=== PATIENT | female | born 1950 | race Hispanic/Latino ===

== ENCOUNTER 2017-11-04 20:03 | Inpatient (IN) | payer MEDICARE, OTHER ==
--- NOTE | 2017-11-04 20:47 | ED PDOC ---
Arrival/HPI - General Chief Complaint: GI Problem Time Seen by Provider: 11/04/17 20:43 Historian: Patient - History of Present Illness Narrative History of Present Illness (Text): 11/04/17 20:40 67 year old female, whose PMH includes hypertension, borderline diabetes, and coronary stents, who presents to the emergency department complaining of vomiting since earlier today. Patient reports last night she had diarrhea, and today began to feel nauseous associated with fever and chills. Patient reports she had about 6 episodes of diarrhea and denies any sick contact at home. Her children states she was not acting liker herself or answering questions. Patient denies abdominal pain, chest pain, shortness of breath, headache, dysuria, hematochezia, or other complaints. PMD: Dr. White Time/Duration: 4-6 hours Symptom Onset: Sudden Symptom Course: Worsening Past Medical History - Provider Review Nursing Documentation Reviewed: Yes - Infectious Disease Hx of Infectious Diseases: None - Tetanus Immunization Tetanus Immunization: Unknown - Cardiac Hx Cardiac Disorders: Yes Hx Hypertension: Yes - Pulmonary Hx Respiratory Disorders: Yes Hx Sleep Apnea: Yes - Neurological Hx Neurological Disorder: Yes Hx Migraine: Yes Other/Comment: Migraine headache - HEENT Hx HEENT Disorder: No (WEARS RX GLASSES) - Renal Hx Renal Disorder: No - Endocrine/Metabolic Hx Endocrine Disorders: Yes Other/Comment: UNCONTROLLED BS - Hematological/Oncological Hx Blood Disorders: Yes Hx Anemia: Yes - Integumentary Hx Dermatological Disorder: Yes Hx Psoriasis: Yes - Musculoskeletal/Rheumatological Hx Musculoskeletal Disorders: Yes Hx Arthritis: Yes Hx Falls: No Hx Osteoarthritis: Yes Hx Unsteady Gait: Yes - Gastrointestinal Hx Gastrointestinal Disorders: Yes Hx Gastroesophageal Reflux: Yes - Genitourinary/Gynecological Hx Genitourinary Disorders: No - Psychiatric Hx Emotional Abuse: No Hx Physical Abuse: No Hx Substance Use: No - Surgical History Hx Cardiac Catheterization: Yes Hx Coronary Stent: Yes Hx Orthopedic Surgery: Yes (R KNEE) - Anesthesia Hx Anesthesia: Yes Hx Anesthesia Reactions: Yes (NAUSEA/VOMITING) Hx Malignant Hyperthermia: No - Suicidal Assessment Feels Threatened In Home Enviroment: No Family/Social History - Physician Review Nursing Documentation Reviewed: Yes Family/Social History: Unknown Family HX Smoking Status: Never Smoked Hx Alcohol Use: No Hx Substance Use: No Hx Substance Use Treatment: No Allergies/Home Meds Allergies/Adverse Reactions: Allergies Penicillins Allergy (Verified 11/04/17 20:04) RASH Home Medications: Home Meds Medication Instructions Recorded Confirmed Amlodipine Besylate [Norvasc] 5 mg PO QAM 11/03/15 11/04/17 Ascorbic Acid [Vitamin C] 1 tab PO DAILY 11/03/15 11/04/17 Cholecalciferol [Vitamin D] 1,000 iu PO QAM 11/03/15 11/04/17 Esomeprazole Magnesium [Nexium] 40 mg PO QAM 11/03/15 11/04/17 Glucosamine/D3/Boswellia Sofie 1 each PO QAM 11/03/15 11/04/17 [Glucosamine Complex Tablet] Collbran-3 Fatty Acids [Fish Oil] 1 tab PO DAILY 11/03/15 11/04/17 Propranolol HCl [Inderal LA] 160 mg PO QAM 11/03/15 11/04/17 Vitamin E 1 tab PO DAILY 11/03/15 11/04/17 Atorvastatin [Lipitor] 20 mg PO DAILY 11/27/15 11/04/17 Review of Systems - Review of Systems Constitutional: Fevers ENT: absent: Sinus Congestion Respiratory: absent: SOB Cardiovascular: absent: Chest Pain Gastrointestinal: Diarrhea, Nausea, Vomiting. absent: Abdominal Pain Genitourinary Female: absent: Dysuria Skin: absent: Rash Neurological: absent: Headache Endocrine: absent: Diaphoresis Physical Exam Vital Signs Reviewed: Yes Vital Signs Temp Pulse Resp BP Pulse Ox 11/04/17 20:10 100.5 F H 101 H 17 121/81 100 Temperature: Febrile Blood Pressure: Normal Pulse: Tachycardic Respiratory Rate: Normal Appearance: Positive for: Non-Toxic, Comfortable Pain Distress: None Mental Status: Positive for: Alert and Oriented X 3 - Systems Exam Head: Present: Atraumatic, Normocephalic Pupils: Present: PERRL Extroacular Muscles: Present: EOMI Conjunctiva: Present: Normal Mouth: Present: Dry. No: Moist Mucous Membranes Respiratory/Chest: Present: Clear to Auscultation, Good Air Exchange. No: Respiratory Distress, Accessory Muscle Use, Wheezes, Decreased Breath Sounds, Rales, Retracting, Rhonchi Cardiovascular: Present: Regular Rate and Rhythm, Normal S1, S2. No: Murmurs Abdomen: Present: Normal Bowel Sounds. No: Tenderness, Distention, Peritoneal Signs, Rebound, Guarding Neurological: Present: GCS=15, CN II-XII Intact, Speech Normal Skin: Present: Warm, Dry, Pale. No: Rashes, Normal Color Psychiatric: Present: Alert, Oriented x 3, Normal Insight, Normal Concentration Medical Decision Making ED Course and Treatment: 11/04/17 Impression: 67 year old female with dry mucous membrane and pale appearance complaining of nausea, vomiting, diarrhea , and fever. Plan: -- CT abdomen -- Labs -- Zofran and Sodium Chloride -- Urinalysis -- Reassess and disposition Progress Notes: EXAM: CT Abdomen and Pelvis With Intravenous Contrast Dictated and Authenticated by: Thien Baker MD 11/05/2017 12:02 AM IMPRESSION: 1. Diverticulosis in the colon without evidence of diverticulitis. 2. There is some fluid in the colon which could represent diarrhea. No significant mucosal thickening to suggest colitis. 11/05/17 00:[address] Reid, patient to be admitted for acute vomit and diarrhea, febrile with presumed infectious source, empiric iv abx, hypomagnesium - Lab Interpretations Lab Results: 11/04/17 20:30 11/04/17 20:30 Lab Results 11/04/17 23:00: Lactic Acid 2.5 H 11/04/17 20:30: pO2 47, VBG pH 7.40, VBG pCO2 43.0, VBG HCO3 26.6, VBG O2 Sat ( Calc) 86.5 H, VBG Base Excess 1.5 11/04/17 20:30: Sodium 139, Potassium 3.5 L, Chloride 100, Carbon Dioxide 26, Anion Gap 17, BUN 15, Creatinine 0.6 L, Est GFR ( Amer) > 60, Est GFR ( Non-Af Amer) > 60, Random Glucose 126 H, Calcium 8.7, Magnesium 1.0 L*, Total Bilirubin 0.9, AST 31, ALT 39, Alkaline Phosphatase 63, Total Protein 7.4, Albumin 4.6, Globulin 2.9, Albumin/Globulin Ratio 1.6 11/04/17 20:30: WBC 7.3 D, RBC 4.69, Hgb 13.9, Hct 40.2, MCV 85.7, MCH 29.6, MCHC 34.6, RDW 13.5, Plt Count 155, MPV 10.4, Gran % 86.9 H, Lymph % (Auto) 6.7 L, [place] % (Auto) 4.8, Eos % (Auto) 1.5, Baso % (Auto) 0.1, Gran # 6.32, Lymph # (Auto) 0.5 L, [place] # (Auto) 0.4, Eos # (Auto) 0.1, Baso # (Auto) 0.01 I have reviewed the lab results: Yes - RAD Interpretation Radiology Orders: 11/04/17 20:44 ABDOMEN & PELVIS [ABD & PELVIS IV CONTRAST ONLY] [CT] Stat Obstetrics Nurse: Radiologist - EKG Interpretation EKG Interpretation (Text): 11/05/17 00:38 2320: nsr at 90 bpm, nml qrs, nml axis, nonspecific t wave abnormality, lateral flipped t waves Interpreted by ED Physician: Yes - Medication Orders Current Medication Orders: Sodium Chloride (Sodium Chloride 0.9%) 1,000 mls @ 150 mls/hr IV .Q6H40M HECTOR Last Admin: 11/04/17 21:05 Dose: 150 mls/hr eMAR Start Stop Document 11/04/17 21:05 JOMalia (Rec: 11/04/17 21:05 MYA [id number]) Intravenous Solution Start Date 11/04/17 Start Time 21:05 Ciprofloxacin (Cipro 400mg/200ml Dsw) 400 mg in 200 mls @ 133.3 mls/hr IVPB STAT STA PRN Reason: Protocol Stop: 11/05/17 01:45 Metronidazole (Flagyl) 500 mg in 100 mls @ 100 mls/hr IVPB STAT STA PRN Reason: Protocol Stop: 11/05/17 01:15 Last Admin: 11/05/17 00:31 Dose: 100 mls/hr eMAR Start Stop Document 11/05/17 00:31 JOL (Rec: 11/05/17 00:31 MYA [id number]) Intravenous Solution Start Date 11/05/17 Start Time 00:31 End Date 11/05/17 End time 01:31 Total Infusion Time 60 Ondansetron HCl (Zofran Inj) 4 mg IVP Q6 PRN PRN Reason: Nausea/Vomiting Discontinued Medications Magnesium 2 gm/50 ml NS (Magnesium Sulfate 2 Gm/50 Ml Ns) 2 gm in 50 mls @ 50 mls/hr IVPB ONCE ONE Stop: 11/04/17 22:50 Last Admin: 11/04/17 22:35 Dose: 50 mls/hr eMAR Start Stop Document 11/04/17 22:35 MYA (Rec: 11/04/17 22:48 JOMalia [id number]) Intravenous Solution Start Date 11/04/17 Start Time 22:35 End Date 11/04/17 End time 23:35 Total Infusion Time 60 Ondansetron HCl (Zofran Inj) 4 mg IVP STAT STA Stop: 11/04/17 20:45 Last Admin: 11/04/17 21:05 Dose: 4 mg IVP Administration Document 11/04/17 21:05 MYA (Rec: 11/04/17 21:05 MYA [id number]) Charges for Administration # of IVP Administrations 1 - Scribe Statement The provider has reviewed the documentation as recorded by the Scribe So Gutierrez Provider Scribe Attestation: All medical record entries made by the Scribe were at my direction and personally dictated by me. I have reviewed the chart and agree that the record accurately reflects my personal performance of the history, physical exam, medical decision making, and the department course for this patient. I have also personally directed, reviewed, and agree with the discharge instructions and disposition. Disposition/Present on Arrival - Present on Arrival Any Indicators Present on Arrival: No History of DVT/PE: No History of Uncontrolled Diabetes: No Urinary Catheter: No History of Decub. Ulcer: No History Surgical Site Infection Following: None - Disposition Have Diagnosis and Disposition been Completed?: Yes Diagnosis: Gastroenteritis, Hypomagnesemia Disposition: HOSPITALIZED Disposition Time: 00:18 Patient Problems: Current Active Problems Problem Status Onset Gastroenteritis Acute Hypomagnesemia Acute Condition: FAIR
[2017-11-04] MEDS: Sodium Chloride 0.9% 1,000 ML IV SCH (21:05)
[2017-11-04 21:15] LABS: BASO # 0.01 K/mm3 (0.0-2.0); BASO % 0.1 % (0.0-3.0); EOS # 0.1 (0.0-0.7); EOS % 1.5 % (1.5-5.0); GRAN # 6.32 (1.4-6.5); GRAN % 86.9 % (50.0-68.0); HEMOGLOBIN 13.9 g/dL (12.0-16.0); LYMPH # 0.5 (1.2-3.4); LYMPH % 6.7 % (22.0-35.0); MEAN CELL VOLUME 85.7 fl (80.0-105.0); MEAN CORPUSCULAR HEMOGLOBIN 29.6 pg (25.0-35.0); MEAN CORPUSCULAR HGB CONC 34.6 g/dl (31.0-37.0); MEAN PLATELET VOLUME 10.4 fl (7.0-11.0); MONO # 0.4 (0.1-0.6); MONO % 4.8 % (1.0-6.0); RBC 4.69 10^6/uL (3.5-6.1); RED CELL DISTRIBUTION WIDTH 13.5 % (11.5-14.5); WHITE BLOOD COUNT 7.3 10^3/ul (4.5-11.0)
[2017-11-04 21:16] LABS: VENOUS BLOOD GAS BASE EXCESS 1.5 mmol/L (0.0-2.0); VENOUS BLOOD GAS PO2 47 mm/Hg (30-55)
[2017-11-04 21:47] LABS: ALB/GLOB RATIO 1.6 (1.1-1.8); ALBUMIN 4.6 g/dL (3.0-4.8); ALT/SGPT 39 U/L (7-56); AST/SGOT 31 U/L (14-36); BLOOD UREA NITROGEN 15 mg/dL (7-21); CALCIUM 8.7 mg/dL (8.4-10.5); GFR AFRICAN-AMERICAN > 60; GFR NON-AFRICAN AMERICAN > 60
[2017-11-04] MEDS ORDERED: Magnesium 2 gm/50 ml NS 2 GM/50 ML BAG IVPB ONE (21:51)
[2017-11-04] MEDS ORDERED: Iohexol 350 MG/100 ML VIAL ONE (22:03)
[2017-11-05] MEDS ORDERED: Ciprofloxacin 400mg/200ml D5W 400 MG/200 ML BAG IVPB STA (00:15)
[2017-11-05] MEDS ORDERED: metroNIDAZOLE IV 500 mg/100 ml 500 MG/100 ML BAG IVPB STA (00:16)
[2017-11-05 01:52] LABS: PH,URINE 6.5 (4.7-8.0); URINE APPEARANCE CLEAR (CLEAR); URINE BILIRUBIN NEGATIVE (NEGATIVE); URINE BLOOD NEGATIVE (NEGATIVE); URINE COLOR YELLOW (YELLOW); URINE GLUCOSE (UA) NEGATIVE (NEGATIVE); URINE LEUKOCYTE ESTERASE NEGATIVE Leu/uL (NEGATIVE); URINE PROTEIN NEGATIVE mg/dL (<30 mg/dL); URINE UROBILINOGEN 0.2 E.U./dL (<1 E.U./dL)
[2017-11-05] MEDS: Sodium Chloride 0.9% 1,000 ML IV SCH ×5 (01:52→23:00)
[2017-11-05 03:02] VITALS: BMI 35.0
[2017-11-05] MEDS ORDERED: Pneumococcal 23-Valent Vaccine IM ONE (03:02)
--- NOTE | 2017-11-05 09:20 | CARD ---
APPROVED REPORT Date of service: 11/04/2017 EKG Measurement Heart [id number] CT [id number] <Conclusion> Normal sinus rhythm Minimal voltage criteria for LVH, may be normal variant Cannot rule out Anterior infarct, age undetermined T wave abnormality, consider lateral ischemia Abnormal ECG
[2017-11-05 10:14] LABS: MEAN CELL VOLUME 87.1 fl (80.0-105.0); MEAN CORPUSCULAR HEMOGLOBIN 29.8 pg (25.0-35.0); MEAN CORPUSCULAR HGB CONC 34.2 g/dl (31.0-37.0); MEAN PLATELET VOLUME 9.5 fl (7.0-11.0); RBC 4.03 10^6/uL (3.5-6.1); RED CELL DISTRIBUTION WIDTH 13.6 % (11.5-14.5); WHITE BLOOD COUNT 4.6 10^3/ul (4.5-11.0)
--- NOTE | 2017-11-05 10:22 | CT ---
Date of service: 11/04/2017 PROCEDURE: CT Abdomen and Pelvis without intravenous contrast HISTORY: colitis COMPARISON: None. TECHNIQUE: Technique. Contrast dose: Radiation dose: Total exam DLP = mGy-cm. This CT exam was performed using one or more of the following dose reduction techniques: Automated exposure control, adjustment of the mA and/or kV according to patient size, and/or use of iterative reconstruction technique. FINDINGS: LOWER THORAX: Elevated left hemidiaphragm. LIVER: 1.2 centimeter hypodense lesion in the right hepatic lobe probably a cyst or hemangioma. . No gross lesion or ductal dilatation. GALLBLADDER AND BILE DUCTS: Unremarkable. PANCREAS: Unremarkable. No gross lesion or ductal dilatation. SPLEEN: Unremarkable. ADRENALS: Unremarkable. No mass. KIDNEYS AND URETERS: Unremarkable. No hydronephrosis. No solid mass. VASCULATURE: Unremarkable. No aortic aneurysm. BOWEL: Mild colonic diverticulosis. No obstruction. No gross mural thickening. APPENDIX: Unremarkable. Normal appendix. PERITONEUM: Unremarkable. No free fluid. No free air. LYMPH NODES: Unremarkable. No enlarged lymph nodes. BLADDER: Unremarkable. REPRODUCTIVE: Unremarkable. BONES: No acute fracture. OTHER FINDINGS: None. IMPRESSION: Mild colonic diverticulosis. Likely cyst or hemangioma in the right hepatic lobe.
[2017-11-05 10:24] LABS: BLOOD UREA NITROGEN 11 mg/dL (7-21)
[2017-11-05 10:25] LABS: ALB/GLOB RATIO 1.4 (1.1-1.8); ALBUMIN 3.5 g/dL (3.0-4.8); ALT/SGPT 35 U/L (7-56); AST/SGOT 22 U/L (14-36); CALCIUM 7.7 mg/dL (8.4-10.5); GFR AFRICAN-AMERICAN > 60; GFR NON-AFRICAN AMERICAN > 60
[2017-11-05] MEDS ORDERED: Magnesium 2 gm/50 ml NS 2 GM/50 ML BAG IVPB ONE (12:36)
[2017-11-05] MEDS: metroNIDAZOLE IV 250mg/50 ml 250 MG/50 ML BAG IV SCH ×2 (14:49→21:38)
--- NOTE | 2017-11-05 21:09 | HP ---
HISTORY OF PRESENT ILLNESS: The patient is 67 years old, who came to emergency room. She states that she has having diarrhea intermittently, Sunday evening to Sunday morning, then she started vomiting. Did not feel well, was having cramping abdominal pain. Cannot recall if she ate anything from outside. She did have fever and chills. Yesterday, she had six to seven episode of diarrhea, but the stool was not black, neither she saw blood in the stool. She was a little bit confused too. No history of chest pain. No shortness of breath. PAST MEDICAL HISTORY: Significant for: 1. Hypertension. 2. Hyperlipidemia. 3. Coronary artery disease, status post angioplasty. 4. History of sleep apnea. 5. History of psoriasis. 6. Generalized osteoarthritis. 7. Gastroesophageal reflux disease. ALLERGIES: SHE IS ALLERGIC TO PENICILLIN. MEDICATIONS AT HOME: She is on multiple vitamins and she takes propranolol 160 mg every morning. She takes Nexium, Lipitor 20 mg daily, aspirin 81 mg daily, amlodipine 5 mg daily. SOCIAL HISTORY: She lives with her family. Denies smoking, drinking or alcohol use. REVIEW OF SYSTEMS: Significant for generalized weakness. She did have three episodes of bowel movement since morning and was watery, no blood in stool. PHYSICAL EXAMINATION: GENERAL: She is awake, alert, oriented, and communicative. VITAL SIGNS: She is afebrile, pulse 84, respirations 20, blood pressure 131/78. LUNGS: Bilateral good airflow. No rhonchi or crackles. HEART: S1 and S2 audible. ABDOMEN: Soft, nontender. No rebound. No guarding. NEUROLOGIC: She is awake, alert, oriented, and communicative. Moves all extremities. EXTREMITIES: Bilateral leg, no edema. No ulcers. LABORATORY EXAM: WBC 4.6, hemoglobin 12, hematocrit 35.1, and platelets 132. Chemistries: Sodium 142, potassium 3.1, chloride 106, CO2 of 26. BUN 11, creatinine 0.6. Blood sugar 120. Magnesium 1.5. She had CT scan of the abdomen and pelvis done that shows diverticulosis, but no diverticulitis and she has a meningioma in her right hepatic lobe. ASSESSMENT: 1. Gastroenteritis, rule out clostridium difficile, rule out viral gastroenteritis. 2. Hypertension. 3. Hyperlipidemia. 4. Coronary artery disease, status post angioplasty. 5. Hypomagnesemia. 6. Hypokalemia. PLAN: We will continue the patient on IV fluids, supplemental potassium. We will send stool for C. diff. Start her on Rocephin and Flagyl and follow up electrolyte in a.m. Sid Reid MD
[2017-11-06] MEDS: metroNIDAZOLE IV 250mg/50 ml 250 MG/50 ML BAG IV SCH ×3 (05:16→21:12)
[2017-11-06] MEDS: Pantoprazole 40 mg EC Tab PO SCH (05:17)
[2017-11-06] MEDS ORDERED: Pantoprazole 40 mg EC Tab PO SCH ×2 (06:00→06:30)
[2017-11-06 06:42] LABS: HEMOGLOBIN 11.8 g/dL (12.0-16.0); MEAN CORPUSCULAR HEMOGLOBIN 29.4 pg (25.0-35.0); MEAN CORPUSCULAR HGB CONC 33.4 g/dl (31.0-37.0); MEAN PLATELET VOLUME 10.2 fl (7.0-11.0); RBC 4.01 10^6/uL (3.5-6.1); RED CELL DISTRIBUTION WIDTH 13.8 % (11.5-14.5); WHITE BLOOD COUNT 3.7 10^3/ul (4.5-11.0)
[2017-11-06 07:03] LABS: ALB/GLOB RATIO 1.3 (1.1-1.8); ALBUMIN 3.5 g/dL (3.0-4.8); ALT/SGPT 46 U/L (7-56); AST/SGOT 34 U/L (14-36); BLOOD UREA NITROGEN 4 mg/dL (7-21); CALCIUM 7.7 mg/dL (8.4-10.5); GFR AFRICAN-AMERICAN > 60; GFR NON-AFRICAN AMERICAN > 60
[2017-11-06] MEDS ORDERED: Propranolol 80 mg ER Cap PO SCH (10:00)
[2017-11-06] MEDS ORDERED: PROPRANOLOL HCL 160 MG PO SCH (10:00)
[2017-11-06] MEDS ORDERED: cefTRIAXone 1 gm 1 GM/100 ML BAG IVPB SCH (10:00)
--- NOTE | 2017-11-06 10:15 | CT ---
Date of service: 11/05/2017 PROCEDURE: CT Chest without contrast HISTORY: Temp COMPARISON: 11/04/2017 TECHNIQUE: Contiguous axial images were obtained through the chest without intravenous contrast enhancement. Sagittal and coronal reconstructions were performed. Radiation dose (DLP): 641 mGy-cm. This CT exam was performed using one or more of the following dose reduction techniques: Automated exposure control, adjustment of the mA and/or kV according to patient size, and/or use of iterative reconstruction technique. FINDINGS: LUNGS: Clear lungs. Visualized airway clear. MEDIASTINUM: Unremarkable thoracic aorta. No aneurysm. Coronary artery calcification. Mild cardiomegaly Main pulmonary artery unremarkable. No vascular congestion. No lymphadenopathy. PLEURA: No pleural fluid. No pneumothorax. BONES: No fracture. No destructive lesion. UPPER ABDOMEN: Grossly unremarkable. OTHER FINDINGS: The report concurs with the preliminary [facility] report IMPRESSION: Unremarkable non-contrast enhanced CT of the chest.
[2017-11-06] MEDS ORDERED: Potassium Chloride 20 mEq ER Tab PO ONE (10:28)
--- NOTE | 2017-11-06 11:30 | CP.PCM.PN ---
Subjective - Date & Time of Evaluation Date of Evaluation: 11/06/17 Time of Evaluation: 08:45 - Subjective Subjective: S&E at bedside, chart reviewed. Patient tolerating clear liquids, no postprandial N/V or abdominal pain. Hungry this am. Last loose BM was yesterday morning, no further BM. Denies fever, chills. No reports of bleeding. Ct chest no acute findings, ct scan A&P show 1.2 cm hyperdense liver lesion on right hepatic lobe, cyst or hemangioma and diverticulosis. No new complaints, feels a better today. 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 Objective - Vital Signs/Intake and Output Vital Signs (last 24 hours): Temp Pulse Resp BP Pulse Ox 98.1 F 79 20 133/81 91 L 11/06/17 07:30 11/06/17 07:30 11/06/17 07:30 11/06/17 07:30 11/06/17 07:30 Intake and Output: 11/06/17 11/06/17 06:59 18:59 Intake Total 1200 Balance 1200 - Medications Medications: Current Medications Acetaminophen (Tylenol 325mg Tab) 650 mg PO Q6H PRN PRN Reason: Fever >100.4 F Last Admin: 11/05/17 18:37 Dose: 650 mg Amlodipine Besylate (Norvasc) 5 mg PO QAM [facility] Aspirin (Ecotrin) 81 mg PO DAILY [facility] Last Admin: 11/05/17 11:49 Dose: 81 mg Atorvastatin Calcium (Lipitor) 20 mg PO DAILY [facility] Metronidazole (Flagyl) 250 mg in 50 mls @ 100 mls/hr IV Q8 [facility] PRN Reason: Protocol Stop: 11/10/17 14:01 Last Admin: 11/06/17 05:16 Dose: 100 mls/hr Ceftriaxone Sodium (Rocephin 1 Gram Ivpb) 1 gm in 100 mls @ 100 mls/hr IVPB DAILY [facility] PRN Reason: Protocol Sodium Chloride (Sodium Chloride 0.9%) 1,000 mls @ 100 mls/hr IV .Q10H [facility] Last Admin: 11/05/17 23:00 Dose: Not Given Ondansetron HCl (Zofran Inj) 4 mg IVP Q6 PRN PRN Reason: Nausea/Vomiting Pantoprazole Sodium (Protonix Ec Tab) 40 mg PO 0600 [facility] Last Admin: 11/06/17 05:17 Dose: 40 mg Propranolol HCl (Inderal La) 160 mg PO DAILY [facility] - Labs Labs: 11/06/17 05:45 11/06/17 05:45 - Constitutional Appears: No Acute Distress - Head Exam Head Exam: NORMOCEPHALIC - Eye Exam Eye Exam: Normal appearance. absent: Scleral icterus - ENT Exam ENT Exam: Mucous Membranes Moist - Neck Exam Neck Exam: Normal Inspection - Respiratory Exam Respiratory Exam: Clear to Ausculation Bilateral, NORMAL BREATHING PATTERN. absent: Respiratory Distress - Cardiovascular Exam Cardiovascular Exam: +S1, +S2 - GI/Abdominal Exam GI & Abdominal Exam: Soft, Normal Bowel Sounds. absent: Guarding, Tenderness, Rebound - Extremities Exam Extremities Exam: absent: Calf Tenderness, Pedal Edema - Neurological Exam Neurological Exam: Alert, Awake, Oriented x3 - Skin Skin Exam: Dry, Warm Assessment and Plan - Assessment and Plan (Free Text) Assessment: ASSESSEMENT: Acute Diarrhea, maybe secondary to gastroenteritis, cdiff, negative Hypomagesium Hypokalemia Liver lesion right hepatic lobe, 1.2 cm, cyst vs hemangioma Obesity CAD, s/p angioplasty HTN HLD PLAN: monitor electrolytes and replace as needed on clear liquid, advance as tolerated on IV antibiotics: rocephin and flagyl GI propylaxisis give a dose of Potassium 20 meqX1 check MG level MRI abdomen w/wout contrast FU liver lesion seen on ct scan Seen and discussed with Dr. Myles.
--- NOTE | 2017-11-06 13:09 | PN ---
DATE: 11/06/2017 SUBJECTIVE: The patient is 67 years old, seen and examined, doing well. No nausea or vomiting. No diarrhea. Last bowel movement was yesterday. She states she has blisters in her right lower gum that broke last night and had pussy blood-tinged fluid coming out of that and since then she is feeling better. PHYSICAL EXAMINATION: VITAL SIGNS: She is afebrile, pulse 79, respirations 20, and blood pressure 133/80. LUNGS: Bilateral fair airflow. No rhonchi or crackle. HEART: S1, S2 audible. ABDOMEN: Soft, nontender. No rebound, no guarding. NEUROLOGICAL: She is awake, alert, oriented, and communicative. LABORATORY EXAM: WBC 3.7, hemoglobin 11.8, hematocrit 35.3, and platelets 136. Chemistry: Sodium 144, potassium 3.4, chloride 108, CO2 of 27. BUN 4, creatinine 0.5. Blood sugar of 97, magnesium is 2.1. Her blood culture and urine cultures are negative. Stool for C. diff is negative. CT scan of the chest was done that shows no infiltrates. ASSESSMENT: 1. Gastroenteritis. 2. Dehydration. 3. Nni-stparwt-kkzzfnjrd diabetes. 4. Hypertension. 5. Hyperlipidemia. 6. Electrolyte imbalance. 7. Hypokalemia. PLAN: We will continue the patient on current antibiotics. We will advance her diet, monitor her electrolytes. MRI of liver has been ordered. We will monitor her blood sugar. If the patient stays afebrile and no nausea or diarrhea, possible discharge in a.m. Sid Reid MD
[2017-11-06] MEDS ORDERED: Gadodiamide 287 MG/ML VIAL (15ML) IV ONE (15:58)
[2017-11-07] MEDS: metroNIDAZOLE IV 250mg/50 ml 250 MG/50 ML BAG IV SCH (05:06)
[2017-11-07] MEDS: Sodium Chloride 0.9% 1,000 ML IV SCH (05:07)
[2017-11-07] MEDS: Pantoprazole 40 mg EC Tab PO SCH (05:07)
[2017-11-07 07:48] VITALS: BP 145/85; PULSE 61; RESP 20; TEMP 97.9; O2SAT 93
--- NOTE | 2017-11-07 10:13 | MRI ---
Date of service: 11/06/2017 PROCEDURE: MRI Abdomen with and without contrast HISTORY: Follow-up liver lesion COMPARISON: CT 11/04/2017. TECHNIQUE: Multisequence, multiplanar MR images of the abdomen with and without gadolinium contrast enhancement. 15 cc of Omniscan FINDINGS: LIVER: Lesion in the right lobe of the liver shows no significant enhancement. The findings are consistent with a simple cyst. This measures 12 x 15 mm. GALLBLADDER: Unremarkable. SPLEEN: Unremarkable. PANCREAS: Unremarkable. ADRENALS: Unremarkable. KIDNEYS: Unremarkable. AORTA: No aneurysm. ASCITES: None. PERITONEUM: Unremarkable. LYMPH NODES: Unremarkable. OTHER FINDINGS: None. IMPRESSION: Lesion in the right lobe of the liver shows no significant enhancement. The findings are consistent with a simple cyst. This measures 12 x 15 mm.
--- NOTE | 2017-11-07 12:30 | CP.PCM.PN ---
Subjective - Date & Time of Evaluation Date of Evaluation: 11/07/17 Time of Evaluation: 09:45 - Subjective Subjective: S&E at bedside, chart reviewed. No N/V, abdominal pain, or GI bleeding. Has had no further diarrhea, last BM was Sunday. Tolerating oral intake, MRI abdomen report simple cyst in right hepatic lobe, measuring [id number]. No fever or chills. Objective - Vital Signs/Intake and Output Vital Signs (last 24 hours): Temp Pulse Resp BP Pulse Ox 97.9 F 61 20 145/85 93 L 11/07/17 07:47 11/07/17 07:47 11/07/17 07:47 11/07/17 07:47 11/07/17 07:47 Intake and Output: 11/07/17 11/07/17 06:59 18:59 Intake Total 120 Balance 120 - Medications Medications: Current Medications Acetaminophen (Tylenol 325mg Tab) 650 mg PO Q6H PRN PRN Reason: Fever >100.4 F Last Admin: 11/05/17 18:37 Dose: 650 mg Amlodipine Besylate (Norvasc) 5 mg PO QAM [facility] Last Admin: 11/06/17 10:29 Dose: 5 mg Aspirin (Ecotrin) 81 mg PO DAILY [facility] Last Admin: 11/06/17 10:29 Dose: 81 mg Atorvastatin Calcium (Lipitor) 20 mg PO DAILY [facility] Last Admin: 11/06/17 10:28 Dose: 20 mg Metronidazole (Flagyl) 250 mg in 50 mls @ 100 mls/hr IV Q8 [facility] PRN Reason: Protocol Stop: 11/10/17 14:01 Last Admin: 11/07/17 05:06 Dose: 100 mls/hr Ceftriaxone Sodium (Rocephin 1 Gram Ivpb) 1 gm in 100 mls @ 100 mls/hr IVPB DAILY [facility] PRN Reason: Protocol Last Admin: 11/06/17 10:29 Dose: 100 mls/hr Sodium Chloride (Sodium Chloride 0.9%) 1,000 mls @ 100 mls/hr IV .Q10H [facility] Last Admin: 11/07/17 05:07 Dose: 100 mls/hr Ondansetron HCl (Zofran Inj) 4 mg IVP Q6 PRN PRN Reason: Nausea/Vomiting Pantoprazole Sodium (Protonix Ec Tab) 40 mg PO 0600 [facility] Last Admin: 11/07/17 05:07 Dose: 40 mg Propranolol HCl (Inderal La) 160 mg PO DAILY [facility] Last Admin: 11/06/17 10:28 Dose: 160 mg - Labs Labs: 11/06/17 05:45 11/06/17 05:45 - Constitutional Appears: No Acute Distress - Eye Exam Eye Exam: Normal appearance. absent: Scleral icterus - ENT Exam ENT Exam: Mucous Membranes Moist - Neck Exam Neck Exam: Normal Inspection - Respiratory Exam Respiratory Exam: NORMAL BREATHING PATTERN. absent: Respiratory Distress - Cardiovascular Exam Cardiovascular Exam: +S1, +S2 - GI/Abdominal Exam GI & Abdominal Exam: Soft, Normal Bowel Sounds. absent: Guarding, Tenderness, Rebound - Extremities Exam Extremities Exam: absent: Calf Tenderness, Pedal Edema - Neurological Exam Neurological Exam: Alert, Awake, Oriented x3 - Skin Skin Exam: Dry, Warm Assessment and Plan - Assessment and Plan (Free Text) Assessment: ASSESSEMENT: Resolved Acute Diarrhea, maybe secondary to gastroenteritis, cdiff, negative Hypomagesium Hypokalemia Liver lesion right hepatic lobe, 1.2 cm, cyst vs hemangioma, s/p MRI abdomen report [id number] Simple liver cyst, patient asymptomatic, can be FU outpatient Obesity CAD, s/p angioplasty HTN HLD PLAN: monitor electrolytes and replace as needed on soft mod carb diet on IV antibiotics: rocephin and flagyl GI propylaxisis patient symptoms improving, patient last colonoscopy was over 10 years ago, recommended elective outpatient colonscopy, discussed outpatient FU in office upon discharge Seen and discussed with Dr. Myles.
--- NOTE | 2017-11-07 14:13 | DS ---
HISTORY OF PRESENT ILLNESS: The patient is 67 years old, seen and examined, doing well, was admitted because of nausea and diarrhea 3 days prior to coming to the hospital. Had episode of fever initially, but currently afebrile for the last 24 hours. No nausea or vomiting. Tolerating food. PHYSICAL EXAMINATION: VITAL SIGNS: The patient is afebrile, pulse 61, respirations 20, blood pressure 145/85. LUNGS: Bilateral fair airflow. No rhonchi or crackle. HEART: S1 and S2 audible. ABDOMEN: Soft. Nontender. No rebound. No guarding. NEUROLOGICAL: The patient is awake, alert, oriented, communicative. LABORATORY EXAM: Blood sugar is 106. ASSESSMENT: 1. Gastroenteritis, etiology is still unclear. 2. Diverticulosis. 3. Borderline diabetes. 4. Hypertension. Workup include stool Clostridium difficile negative. Blood culture, urine cultures are negative. Stools for Clostridium difficile is negative. PLAN: The patient will be discharged today. She is afebrile. No abdominal pain. The patient was found to have liver cysts on CT scan, had MRI done that seems to be unremarkable. Photocopy of her MRI was give to the patient to give it to her primary care physician to follow it up up to 1 year with hemangioma protocol; however, this seems to be cyst, though. So plan is the patient is going to be discharged and she will follow up with her PMD. Sid Reid MD
== END 2017-11-07 15:24 | disposition home or self-care (01) | DRG 392 ==
LOC: ED 20:03 → ERH 11-05 00:13 → 3RNO 11-05 01:24
PROVIDERS: ADMIT Internal Medicine; ATTEND Internal Medicine
DX: K52.9 Noninfective gastroenteritis and colitis, unspecified (principal); E83.42 Hypomagnesemia; E86.0 Dehydration; E87.6 Hypokalemia; I10 Essential (primary) hypertension; G47.30 Sleep apnea, unspecified; I25.10 Atherosclerotic heart disease of native coronary artery without angina pectoris; E11.9 Type 2 diabetes mellitus without complications; K76.89 Other specified diseases of liver; K57.30 Diverticulosis of large intestine without perforation or abscess without bleeding; K21.9 Gastro-esophageal reflux disease without esophagitis; E66.9 Obesity, unspecified; M15.9 Polyosteoarthritis, unspecified; L40.9 Psoriasis, unspecified; E78.5 Hyperlipidemia, unspecified; Z95.5 Presence of coronary angioplasty implant and graft; Z79.82 Long term (current) use of aspirin; Z88.0 Allergy status to penicillin; Z68.35 Body mass index [BMI] 35.0-35.9, adult

== ENCOUNTER 2018-05-07 13:20 | Outpatient (CLI) | payer MEDICARE, OTHER | END 2018-05-07 13:21 | disposition home or self-care (01) | LOC: RAD 13:20 ==

== ENCOUNTER 2018-05-30 13:31 | Outpatient (CLI) | payer MEDICARE, OTHER | END 2018-05-30 13:32 | disposition home or self-care (01) | LOC: RAD 13:31 | DX: R92.2 Inconclusive mammogram (principal) ==